=== PATIENT | female | born 1985 ===

== ENCOUNTER 2022-06-06 09:59 | Outpatient (CLI) | payer OTHER, SELFPAY | END 2022-06-06 10:00 | disposition home or self-care (01) | LOC: NFLDREF 06-08 09:00 | PROVIDERS: PCP Family Medicine; Visit Provider Family Medicine | DX: E66.01 Morbid (severe) obesity due to excess calories (principal); K21.9 Gastro-esophageal reflux disease without esophagitis; R03.0 Elevated blood-pressure reading, without diagnosis of hypertension; Z13.1 Encounter for screening for diabetes mellitus; Z13.6 Encounter for screening for cardiovascular disorders | CPT/HCPCS: 80053; 80061; 82043; 82570 ==

== ENCOUNTER 2023-07-22 11:47 | Outpatient (CLI) | payer OTHER, SELFPAY | END 2023-07-22 11:48 | disposition home or self-care (01) | LOC: NFLDREF 07-23 07:13 | PROVIDERS: PCP Family Medicine; Referring Provider Family Medicine; Visit Provider Nurse Practitioner Family | DX: R30.0 Dysuria (principal) | CPT/HCPCS: 87086; 87186 ==